=== PATIENT | male | born 1995 | race Caucasian/White ===

== ENCOUNTER 2019-03-05 16:13 | Emergency (ER) | payer SELFPAY ==
[~2019-03-05] VITALS: Ht 162.6 cm; Wt 59.0 kg
[2019-03-05 16:41] VITALS: BP_SYST 162
[2019-03-05 20:10] VITALS: BP_SYST 158
== END 2019-03-05 20:10 | disposition home or self-care (01) ==
LOC: SED 16:13
DX: S82.62XA Displaced fracture of lateral malleolus of left fibula, initial encounter for closed fracture (principal); R03.0 Elevated blood-pressure reading, without diagnosis of hypertension; W03.XXXA Other fall on same level due to collision with another person, initial encounter; Y93.89 Activity, other specified; Y92.89 Other specified places as the place of occurrence of the external cause; Y99.8 Other external cause status
CPT/HCPCS: 99283